=== PATIENT | female | born 1995 | race Caucasian/White ===

== ENCOUNTER 2019-05-30 18:50 | Emergency (ER) | payer OTHER ==
[~2019-05-30] VITALS: Ht 162.6 cm; Wt 48.2 kg
[2019-05-30] MEDS ORDERED: KEPP1TAB PO (18:59)
[2019-05-30] MEDS ORDERED: B-650TAB2 PO (18:59)
[2019-05-30] MEDS ORDERED: ZOFR4TAB16 PO (18:59)
[2019-05-30] MEDS ORDERED: PREN29TA4 PO (18:59)
[2019-05-30] MEDS ORDERED: UNIS25TA5 PO (18:59)
[2019-05-30] MEDS ORDERED: METOCLOPRAMIDE INJ 10MG/2ML VIAL (J2765) IV ONE (19:15)
[2019-05-30] MEDS ORDERED: NS 1,000 ML IV ONE (19:15)
[2019-05-30 19:54] LABS: BASO % 0.2 % (0.0-1.0); EOS % 0.2 % (0.0-3.0); HEMATOCRIT 35.4 % (36.0-47.0); HEMOGLOBIN 12.1 g/dl (12.0-15.5); MEAN CORPUSCULAR HGB CONC 34.2 g/dl (32.0-36.5); MEAN CORPUSCULAR VOLUME 93.7 fl (80.0-96.0); MONO # 0.6 10^3/uL (0.0-0.8); NEUTROPHILS # 5.7 10^3/uL (1.5-8.5); NEUTROPHILS % 68.4 % (36.0-66.0); PLATELET COUNT, AUTOMATED 281 10^3/uL (150-450); RED BLOOD COUNT 3.78 10^6/uL (4.00-5.40); WHITE BLOOD COUNT 8.4 10^3/uL (4.0-10.0)
[2019-05-30 20:18] LABS: ALBUMIN 3.8 GM/DL (3.2-5.2); ALT/SGPT 13 U/L (12-78); BILIRUBIN,DIRECT 0.2 MG/DL (0.0-0.2); BILIRUBIN,TOTAL 0.6 MG/DL (0.2-1.0); BLOOD UREA NITROGEN 13 MG/DL (7-18); CARBON DIOXIDE LEVEL 24 MEQ/L (21-32); CHLORIDE LEVEL 106 MEQ/L (98-107); CREATININE FOR GFR 0.61 MG/DL (0.55-1.30); GLOMERULAR FILTRATION RATE > 60.0 (>60); GLUCOSE, FASTING 87 MG/DL (70-100); POTASSIUM SERUM 4.1 MEQ/L (3.5-5.1); SODIUM LEVEL 138 MEQ/L (136-145); TOTAL PROTEIN 7.2 GM/DL (6.4-8.2)
[2019-05-30] MEDS ORDERED: PROM12.54 PR (20:50)
[2019-05-30] MEDS ORDERED: REGL10TA6 PO (20:50)
[2019-05-30 20:58] VITALS: BP 105/64
== END 2019-05-30 21:00 | disposition home or self-care (01) ==
LOC: M ED 18:50
DX: O26.891 Other specified pregnancy related conditions, first trimester (principal); O21.9 Vomiting of pregnancy, unspecified; Z3A.13 13 weeks gestation of pregnancy; Z79.899 Other long term (current) drug therapy; Z88.0 Allergy status to penicillin
CPT/HCPCS: 80048; 80076; 80180; 81001; 85025; 87086; 96361; 96374; 99284; J2765

== ENCOUNTER → 2019-11-03 | Outpatient (CLI) | payer OTHER ==
[~2019-11-03] MED LIST: B-650TAB2 PO; DIBU10OI TOP; DOCU100C16 PO; IBUP80TA PO; KEPP1TAB PO; KEPP1TAB2 PO; KEPP250T5 PO; PREN29TA4 PO; PROM12.54 PR; REGL10TA6 PO; UNIS25TA5 PO; ZOFR4TAB16 PO
--- NOTE | 2019-11-03 12:51 | REPVR ---
PROCEDURE INFORMATION: Exam: US , Limited Exam date and time: 11/03/2019 12:04 PM Age: 24 years old Clinical indication: Lmp or gestational age (in weeks): 36; Antepartum complications; Weight - insufficient gain; ; Additional info: growth lag with uterine size less than dates TECHNIQUE: Imaging protocol: Real-time ultrasound of the maternal uterus with image documentation. Exam focused on the clinical indication. COMPARISON: No relevant prior studies available. FINDINGS: Gestation: Single living intrauterine fetus. heart rate: Heart rate: 139 beats per minute. Presentation: Vertex position. Placenta: Posterior fundal grade 2 -3 placenta, no previa. Amniotic fluid: Amniotic fluid is normal for gestational age. ALLISON = 11.5 cm. ANATOMICAL SURVEY: anatomy: Normal appearance of the kidneys. Fluid is present in the stomach. Fluid is present in the urinary bladder. Normal appearance of the spine. Humeral length 34 weeks 1 day. Extremities not specifically imaged. heart: 4 chambered cardiac anatomy, Umbilical cord: Normal umbilical cord and insertion. S/D 3.01 Unremarkable 3 vessel umbilical cord. BIOMETRY: Gestational age (AUA): Average ultrasound age: 32 weeks 5 days; compare LMP 36 weeks 0 days. Estimated due date (AUA): APURVA 12/24/2019; compare LMP APURVA 12/01/2019. Estimated weight: 1846 g +/- 273 g; percentile not given. Biparietal diameter: 33 weeks 1 days. Head circumference: 32 weeks 3 days. Abdominal circumference: 30 weeks 0 days. Femur length: 34 weeks 1 days. biometric ratios: Borderline increased HC/AC ratio 1.13 (range 0.93 to 1.11). Increased FL/AC ratio 25.6 (range 20.0 to 24.0). MATERNAL: Cervix: The cervical outlet is obscured by head side lobe artifact. Right adnexa: Right ovary not identified, no adnexal abnormality identified. Left adnexa: Left ovary not identified, no adnexal abnormality identified. IMPRESSION: Single living intrauterine fetus. Size less than dates, estimated weight percentile not given (less than the 10th percentile of 2335 g per [email or web address],). Abnormal FL/AC ratio, borderline abnormal HC/AC ratio, Findings are concerning for intrauterine growth retardation. Follow-up recommended. Electronically signed by: Josef Yip On 11/03/2019 12:51:54 PM
== END ==
LOC: M RAD 11:30
PROVIDERS: ATTEND Registered Nurse Maternal Newborn
DX: O26.843 Uterine size-date discrepancy, third trimester (principal); O36.5930 Maternal care for other known or suspected poor fetal growth, third trimester, not applicable or unspecified; Z3A.36 36 weeks gestation of pregnancy

== ENCOUNTER 2019-11-04 00:28 | Inpatient (IN) | payer OTHER ==
[2019-11-04] VITALS (11 sets, daily range): BP systolic 110–137; BP diastolic 62–89
[~2019-11-04] VITALS: Ht 162.6 cm; Wt 60.0 kg
[~2019-11-04 00:28] MED LIST changes: -DIBU10OI TOP; -DOCU100C16 PO; -IBUP80TA PO; -KEPP1TAB2 PO; -KEPP250T5 PO
[2019-11-04] MEDS ORDERED: ceFAZolin 2 GM/D5W 50 ML IV BAG (J0690 PER 500MG) As Ordered ONE (01:17)
--- NOTE | 2019-11-04 01:53 | HPEPDOC ---
Obstetrical History & Physical General Date of Admission Nov 04, 2019 at 01:16 History of Present Illness 24yo at 36+1wks presenting for report of gush of clear fluid at 0000. Sh more reports onset of painful ctx's soon after her water broke. Denies VB or DFM. She reports receiving BTMZ at 1300 yesterday due to concern of IUGR at <1st percentile and thin cervix. Chief Complaint: LOF, pre-term Information Provided By: Patient Age: 24 : 2 Term: 0 Pre-term: 0 Abortions: 1 Livin Care Care: Good Care Dating Final EDC: Dec 01, 2019 Final EDC for Daily Update: Dec 01, 2019 Final EDC by: LMP LMP: Feb 24, 2019 1st Trimester Date: Apr 21, 2019 Weeks + Days: 8 (+0) EGA at Admission: 36 (+1) Antepartum Course Diagnos(e)s Epilepsy complicating in the third trimester Rh negative status ADHD Autism Intrauterine growth restriction at <1st percentile (EFW at 36+0 1846g) premature rupture of membranes labor Varicella nonimmune Insufficient weight gain in Height (inches): 64 Pre- weight (lbs.): 115 Admission Weight (lbs.): 130 Change in Weight (lbs.): 15 Past Medical History Past Obstetrical History : Past Obstetrical History: Multigravida Date of Delivery: Sep 22, 2018 (SAB) OUTCOMES ANALYST History: No pertinent history Past Medical History Medical History Epilepsy Autism ADHD Sleep disorder Migraines Surgical History: Denies/None Family History Significant Family History: Asthma, Cancer, Heart disease, Hyperlipidemia, Other (hypothyroidism) Social History Marital Status: Family situation: Spouse/partner home Psychosocial History: Att. deficit disorder, Other (Autism) * Smoker: non-smoker Alcohol: Denies Drugs: denies Abuse Violence Screening Have you been hit/kicked/slapp: No Have you been sexually assault: No Imunizations Tdap status: current ([id number]) Influenza Status: declined Allergies Coded Allergies: Penicillins (Verified Adverse Reaction, Mild, itch, 05/30/19) Medications Scheduled Levetiracetam (Keppra) 750 Mg Tablet, 1,500 MG PO BID Patient takes 1500mg at 0200 and 1400 Prenat 115/Iron Fum/Folic/Dss ( 19 Tablet) 1 Each Tablet, 1 TAB PO DAILY Pyridoxine HCl (Vitamin B6) (Vitamin B-6) 50 Mg Tablet, 1 TAB PO DAILY Scheduled PRN Metoclopramide HCl (Reglan) 10 Mg Tablet, 10 MG PO Q6H PRN for NAUSEA Ondansetron HCl (Zofran) 4 Mg Tablet, 1 TAB PO Q6-8HP PRN for nausea/vomiting Promethazine HCl (Promethegan) 12.5 Mg Supp.rect, 12.5 MG KS Q6HP PRN for NAUSEA Miscellaneous Medications Doxylamine Succinate (Unisom) 25 Mg Tablet, 25 MG PO Physical Examination Physical Examination GENERAL: Alert and oriented times three. HEENT: NC/AT, airway patent and self-maintained CARDS: well-perfused, no edema RESP: no exaggerated respiratory effort appreciated ABDOMEN: Gravid and non-tender to touch. FETUS: Is vertex (VTX) by sterile vaginal examination (SVE), fetus is vertex (VTX) by Luciano. SVE: 4/c/0, clear fluid with pooling, +nitrazine EXTREMITIES: No edema. Laboratory Data 24H LABS Laboratory Tests 2 11/04/19 01:20: Serology Scanned Report Hepatitis B Testing Urine Culture: Contaminated Pertinent Laboratoy Data Blood Type: O- RBC Antibody Screen: Negative HIV: Negative Hepatitis B: Negative Rapid Plasma Reagin: Nonreactive Rubella: Immune Varicella: Nonreactive Chlamydia/Gonorrhea: Negative Group B Streptococcus: Unknown Cystic Fibrosis: Negative Glucose Tolerance Test: 138 (unable to complete 3hr due to vomiting, QID FS x2 weeks normal) Anatomy Ultrasound Ultrasound Date: July 14, 2019 Placenta Location: Posterior Normal Anatomy: Yes Placenta Previa: No Estimated Weight (grams): 303 Other Ultrasounds [id number]: EFW 1846g (<1st percentile) Posterior/fundal placenta grade 2-3 ALLISON 11.5cm S/D 3.01 Cervical length 0cm Steroid Therapy Steroid Therapy: Yes Date #1: Nov 03, 2019 (@1300) Reason IUGR, cervical length 0cm at 36wks Vaginal Examination Dilation: 4 cm Effacement: 100% Station: 0 Cervical Consistency: Soft Cervical Position: Anterior Presentation: Cephalic presentation Assessment Heart Rate (FHR): 120 Variability: Moderate Accelerations: Positive Decelerations: None Tocometer Contractions: Yes Frequency: every 2-5 min. Multi-drug resistant Organism: No history of MDRO Assessment/Plan Assessment 24yo at 36+1wks presenting for gush of clear fluid at 0000 and ctx's. Patient in labor with PPROM. Plan Admit to L&D CBC, T&S, RPR IV fluids LR with 500ml bolus then 125ml/hr maintenance Clear liquid diet BTMZ 2nd dose due at 1300 Ancef 2gm q8h for GBS ppx due to h/o PCN reaction (palpitations) and unknown GBS status Continuous EFM, consider internals if clinically indicated NICU consultation due to IUGR and gestation Consider pitocin protocol for augmentation of labor due to PPROM if no spontaneous cervical change Patient may have epidural if desired Keppra 1500mg BID at 0200/1400, seizure precautions URIEL CALLAHAN DO Nov 04, 2019 01:53
[2019-11-04] MEDS ORDERED: KEPP1TAB2 PO (02:03)
[2019-11-04 02:29] LABS: BASO % 0.1 % (0.0-1.0); HEMATOCRIT 40.4 % (36.0-47.0); HEMOGLOBIN 13.8 g/dl (12.0-15.5); LYMPH # 1.6 10^3/uL (1.5-5.0); LYMPH % 13.2 % (24.0-44.0); MEAN CORPUSCULAR HEMOGLOBIN 32.7 pg (27.0-33.0); MEAN CORPUSCULAR HGB CONC 34.2 g/dl (32.0-36.5); MEAN CORPUSCULAR VOLUME 95.7 fl (80.0-96.0); MONO # 0.4 10^3/uL (0.0-0.8); MONO % 3.4 % (0.0-5.0); NEUTROPHILS # 9.9 10^3/uL (1.5-8.5); PLATELET COUNT, AUTOMATED 335 10^3/uL (150-450); RED BLOOD COUNT 4.22 10^6/uL (4.00-5.40); WHITE BLOOD COUNT 11.9 10^3/uL (4.0-10.0)
[2019-11-04] MEDS ORDERED: OXYTOCIN 30 UNITS IN 0.9% NaCl 500ML IV BAG (J2590) As Ordered ONE (02:33)
--- NOTE | 2019-11-04 03:31 | DNPDOC ---
[facility] Delivery Note Delivery Note DATE OF DELIVERY: 04NOV2019 PREDELIVERY DIAGNOSIS: 36+1/7 weeks' gestation and labor. POST DELIVERY DIAGNOSIS: Delivered. PROCEDURE: Spontaneous vaginal delivery LUMBER TRIMMER: Dr. Uriel Callahan ANESTHESIA: None. ESTIMATED BLOOD LOSS: 150 mL. FINDINGS: 4 pound 1 ounce 1860g female , Score 8/9, nuchal cord times 1. Compound left foot. DELIVERY SUMMARY: Patient is a -year-old now para --- who was admitted to labor and delivery for as hours on . URIEL CALLAHAN DO Nov 04, 2019 03:31
--- NOTE | 2019-11-04 07:02 | DNPDOC ---
[facility] Delivery Note Delivery Note DATE OF DELIVERY: 04NOV2019 PREDELIVERY DIAGNOSIS: 36+1/7 weeks' gestation and labor. POST DELIVERY DIAGNOSIS: Delivered. PROCEDURE: Spontaneous vaginal delivery. PULP ROLLER: Dr. Uriel Callhaan ANESTHESIA: None. ESTIMATED BLOOD LOSS: 150mL. FINDINGS: 4 pound 1 ounce 1860g infant, Score 8/8, nuchal cord times 1. Compound left foot. DELIVERY SUMMARY: 24yo G2 now P1011 admitted for PPROM and progressed into spontaneous PTL. Patient found to be c/c/+3 on maternal effort alone. Patient prepped for delivery. With excellent maternal pushing effort, spontaneous vaginal delivery of a viable female infant. Presentation was OA with restitution to LOT with right shoulder anterior position. Nuchal cord x1 reduced on perineum. Anterior shoulder and body delivered without difficulty. Infant noted to have compound left foot. with spontaneous cry therefore placed on maternal abdomen and care transferred to awaiting team. Pitocin IV bolus initiated upon delivery of infant. After 5 minutes of delayed cord clamping then 3VC clamped x2 and cut by FOB. Third stage spontaneous with intact placenta. Inspection revealed hemostatic bilateral labial abrasions that were not repaired. EBL 150ml. Mother stable upon my leaving the room. Infant transferred to NICU due to low weight. URIEL CALLAHAN DO Nov 04, 2019 07:02
[2019-11-05 06:04] VITALS: BP 115/70
[2019-11-05] MEDS ORDERED: KEPP250T5 PO (07:24)
[2019-11-05] MEDS ORDERED: DOCU100C16 PO (07:24)
[2019-11-05] MEDS ORDERED: DIBU10OI TOP (07:24)
[2019-11-05] MEDS ORDERED: IBUP80TA PO (07:24)
--- NOTE | 2019-11-22 12:15 | DSES ---
DATE OF ADMISSION: 11/04/2019 DATE OF DISCHARGE: 11/05/2019 A 24-year-old 1, para 1 now, was admitted at 36 and 1 weeks of gestation with spontaneous rupture of membranes and contractions. She had a spontaneous vaginal delivery, live- female weighing 4 pounds 1 ounce, 1860 grams, scores of 8 and 9 at one and five minutes, respectively. Baby was noted to be an intrauterine growth restriction (IUGR) baby at the onset. Her antepartum course was complicated by epilepsy, Rh negative, attention deficit hyperactivity disorder (ADHD), autism, and IUGR of less than 1%. On discharge, her blood pressure was 115/70, respirations 18, pulse 70, and temperature 97.7. Her admitting hemoglobin was 13.8, hematocrit 40.4, and platelets 335. The rest of the examination unremarkable. Normocephalic, atraumatic. Neck: Full range of motion. Pupils equal and reactive to light. Distal pulses are symmetric. No evidence of deep venous thrombosis (DVT), pulmonary embolus (PE), or superficial phlebitis. Chest is clear bilaterally to bases. No wheezes or rhonchi. No costovertebral angle (CVA) tenderness. Abdomen is soft. Four-quadrant bowel sounds are noted. Uterus is 2 below. Lochia is moderate. She has no rashes, lesions, or pruritus. No arthralgia or myalgia. No complaints of joint pain. No complaint of cough, wheeze, shortness of breath, or dyspnea on exertion. No nausea, vomiting, diarrhea, or constipation. She is voiding well, passing gas, and had a bowel movement. She is doing well as far as baby goes. Breast-feeding is going well. In summary, we have a who delivered a live- female . The baby will be in the intensive care unit (NICU) for several weeks. Patient was discharged. Medications are dispensed at [place]. She will have a 6-week checkup at [facility]. All questions were answered. A 20-minute discussion. Patient was discharged improved. LOLA
== END 2019-11-05 14:10 | disposition home or self-care (01) | DRG 806 ==
LOC: M LDO 00:28 → M LDI 01:16 → M OBS 05:53
PROC: 10E0XZZ Delivery of Products of Conception, External Approach (ICD-10-PCS; principal; 2019-11-04)
DX: O60.14X0 Preterm labor third trimester with preterm delivery third trimester, not applicable or unspecified (principal); Z37.0 Single live birth; O99.354 Diseases of the nervous system complicating childbirth; Z3A.36 36 weeks gestation of pregnancy; G40.909 Epilepsy, unspecified, not intractable, without status epilepticus; O42.013 Preterm premature rupture of membranes, onset of labor within 24 hours of rupture, third trimester; O26.10 Low weight gain in pregnancy, unspecified trimester; O26.893 Other specified pregnancy related conditions, third trimester; Z67.91 Unspecified blood type, Rh negative; Z88.0 Allergy status to penicillin; Z79.899 Other long term (current) drug therapy; O69.81X0 Labor and delivery complicated by cord around neck, without compression, not applicable or unspecified; O32.6XX0 Maternal care for compound presentation, not applicable or unspecified; O36.5930 Maternal care for other known or suspected poor fetal growth, third trimester, not applicable or unspecified